=== PATIENT | male | born 1965 | race African-American/Black ===

== ENCOUNTER 2025-06-09 12:32 | Outpatient (CLI) | payer BC ==
[2025-06-09] MEDS ORDERED: Iopamidol-370 76% 500 ML BOT (X-RAY USE) FS ONE (12:54)
== END 2025-06-09 12:33 | disposition home or self-care (01) ==
LOC: RAD 12:32
PROVIDERS: ATTEND Urology
PROC: 0VH031Z Insertion of Radioactive Element into Prostate, Percutaneous Approach (ICD-10-PCS; principal; 2025-06-09)
DX: C61 Malignant neoplasm of prostate (principal)
CPT/HCPCS: 51600; 74430; Q9967